=== PATIENT | male | born 1970 | race Two or more races ===

== ENCOUNTER 2017-03-20 14:10 | Emergency (ER) | payer SELFPAY ==
[2017-03-20 15:09] LABS: BASO % 1 % (0-3); EOS % 3 % (0-3); HEMATOCRIT 40.9 % (39.0-53.0); HEMOGLOBIN 14.3 g/dL (13.0-17.5); LYMPH # 2.2 x10^3/uL (1.0-4.8); LYMPH % 36 % (24-48); MEAN CORPUSCULAR HEMOGLOBIN 32 pg (25-35); MEAN CORPUSCULAR HGB CONC 35 g/dL (31-37); MEAN CORPUSCULAR VOLUME 91 fL (79-100); MONO % 7 % (0-9); NEUT % 53 % (31-73); PLATELET COUNT 114 x10^3/uL (140-400); RED CELL DISTRIBUTION WIDTH 13.1 % (11.5-14.5); WHITE BLOOD COUNT 6.1 x10^3/uL (4.0-11.0)
[2017-03-20 15:24] LABS: CALCIUM 9.4 mg/dL (8.5-10.1); CREATININE 0.7 mg/dL (0.7-1.3); GFR 120.4
[2017-03-20 15:30] LABS: ALBUMIN 3.6 g/dL (3.4-5.0); TOTAL BILIRUBIN 0.4 mg/dL (0.2-1.0); TOTAL PROTEIN 7.1 g/dL (6.4-8.2)
[2017-03-20] MEDS ORDERED: CIPR500T94 PO (15:47)
[2017-03-20] MEDS ORDERED: LISI1TAB3 PO (15:47)
[2017-03-20] MEDS ORDERED: METF500T4 PO (15:47)
--- NOTE | 2017-03-20 15:47 | PHYS DOC ---
Past Medical History Past Medical History: Diabetes-Type II Past Surgical History: No Surgical History Alcohol Use: None Drug Use: None Adult General Chief Complaint Chief Complaint: LOWER EXT PAIN HPI HPI Patient is a 46 year old male who presents ambulatory to the ED with his complaining of a sore on his left foot that he's had for a month and has not healed. Patient states he "just wants to get checked out". Patient does not have a doctor, he does not take any medications. He has been told that he had diabetes and high blood pressure but has not been treated for either. Patient yesterday started taking some medication he got from [place]. Patient is Chinese speaking only and the japanese interpreter from was used for evaluation of the patient. Pt states this has things seemed to start with a blister or rubbed area, it never healed, he pulled the skin off the top of it and "pus" drained out. Review of Systems Review of Systems Constitutional: Denies fever or chills [] Cardiovascular: Denies chest pain GI: Denies nausea or vomiting Integument: No other skin injury except as in history of present illness Neurologic: Denies headache All other systems were reviewed and found to be within normal limits, except as documented in this note. Allergies Allergies Allergies Coded Allergies Type Severity Reaction Last Updated Verified No Known Drug Allergies 03/20/17 No Physical Exam Physical Exam Constitutional: Well developed, well nourished, no acute distress, non-toxic appearance. Alert, ambulatory, warm and dry, no acute distress. HENT: Normocephalic, atraumatic, bilateral external ears normal, nose normal. [] Eyes: conjunctiva normal, no discharge. [] Neck: Normal range of motion, no stridor. [] Cardiovascular:Heart rate regular rhythm, no murmur [] Lungs & Thorax: Bilateral breath sounds clear to auscultation [] Abdomen: Bowel sounds normal, soft, nondistended, no masses, no pulsatile masses. [] Skin: Warm, dry, no erythema, no rash. [] Extremities: Left foot has an area on the lateral aspect of the heel. There is an approximately less than 1 cm diameter area that is open. It does not appear to have purulent drainage but has had a small amount of serous drainage. It is surrounded by a small 1-2 cm diameter area of very mild erythema and mild swelling that does not appear to be acute cellulitis. Neurologic: Alert and oriented X 3, normal motor function, no focal deficits noted. [] Current Patient Data Vital Signs Vital Signs Date Time Temp Pulse Resp B/P (MAP) Pulse Ox O2 Delivery O2 Flow Rate FiO2 03/20/17 16:07 78 18 183/110 (134) 98 Room Air 03/20/17 14:20 98.9 98.9 Lab Values Laboratory Tests Test 03/20/17 14:40 03/20/17 14:45 Glucose (Fingerstick) 225 mg/dL (70-99) H White Blood Count 6.1 x10^3/uL (4.0-11.0) Red Blood Count 4.50 x10^6/uL (4.30-5.70) Hemoglobin 14.3 g/dL (13.0-17.5) Hematocrit 40.9 % (39.0-53.0) Mean Corpuscular Volume 91 fL (79-100) Mean Corpuscular Hemoglobin 32 pg (25-35) Mean Corpuscular Hemoglobin Concent 35 g/dL (31-37) Red Cell Distribution Width 13.1 % (11.5-14.5) Platelet Count 114 x10^3/uL (140-400) L Neutrophils (%) (Auto) 53 % (31-73) Lymphocytes (%) (Auto) 36 % (24-48) Monocytes (%) (Auto) 7 % (0-9) Eosinophils (%) (Auto) 3 % (0-3) Basophils (%) (Auto) 1 % (0-3) Neutrophils # (Auto) 3.2 x10^3uL (1.8-7.7) Lymphocytes # (Auto) 2.2 x10^3/uL (1.0-4.8) Monocytes # (Auto) 0.4 x10^3/uL (0.0-1.1) Eosinophils # (Auto) 0.2 x10^3/uL (0.0-0.7) Basophils # (Auto) 0.0 x10^3/uL (0.0-0.2) Sodium Level 137 mmol/L (136-145) Potassium Level 4.0 mmol/L (3.5-5.1) Chloride Level 101 mmol/L (98-107) Carbon Dioxide Level 30 mmol/L (21-32) Anion Gap 6 (6-14) Blood Urea Nitrogen 21 mg/dL (8-26) Creatinine 0.7 mg/dL (0.7-1.3) Estimated GFR (Cockcroft-Gault) 120.4 BUN/Creatinine Ratio 30 (6-20) H Glucose Level 234 mg/dL (70-99) H Calcium Level 9.4 mg/dL (8.5-10.1) Total Bilirubin 0.4 mg/dL (0.2-1.0) Aspartate Amino Transferase (AST) 17 U/L (15-37) Alanine Aminotransferase (ALT) 27 U/L (16-63) Alkaline Phosphatase 76 U/L (46-116) Total Protein 7.1 g/dL (6.4-8.2) Albumin 3.6 g/dL (3.4-5.0) Albumin/Globulin Ratio 1.0 (1.0-1.7) Laboratory Tests 03/20/17 14:45 Laboratory Tests 03/20/17 14:45 EKG EKG [] Radiology/Procedures Radiology/Procedures [] Course & Med Decision Making Course & Med Decision Making Pertinent Labs and Imaging studies reviewed. (See chart for details) 46-year-old male presents with a sore on his left heel that he believes he's had for a month and has not healed. It does not appear to be acutely cellulitic. He has continued to work wearing boots inside of plastic or rubber boots, it's possible that the problem with healing is that he has not been elevating it and taking really good care of it. It does not appear to be acutely infected but we will start him on an antibiotic for possible diabetic foot infection. Labs today are suggestive of diabetes. I emphasized to the patient and his the importance of follow-up. He was given area clinics for follow-up. See instructions for plan. [] Dragon Disclaimer Dragon Disclaimer This electronic medical record was generated, in whole or in part, using a voice recognition dictation system. Departure Departure Impression: Primary Impression: Non-healing open wound of heel Additional Impressions: Diabetes Elevated blood pressure reading Disposition: HOME, SELF-CARE Condition: STABLE Referrals: NO PCP (PCP) Patient Instructions: Diabetes and Foot Care, Managing Your High Blood Pressure , Type 2 Diabetes Mellitus, Adult, [id number] Additional Instructions: Stop taking tetracycline. Start taking Cipro. It is a different antibiotic, better for this kind of infection. As much as possible, stay off of your foot and keep it elevated to help keep swelling down and improve circulation. Keep an absorbent dressing on your foot to absorb drainage. Change socks frequently to keep your foot dry. Follow up with one of the clinics that we referred you to, call Wednesday for an appointment, you will need to be seen and possibly referred to a order processing specialist. In the emergency department, your blood pressure was very high. I am starting you on a blood pressure medication to help bring it down. This will need to be rechecked in clinic. Also, your blood sugar was high. It looks like you probably have diabetes. I started you on medication to help bring your blood sugar down. This will need to be rechecked in clinic. Scripts Lisinopril/Hydrochlorothiazide (LISINOPRIL-HCTZ 10-12.5 MG TAB) 1 Each Tablet 1 TAB PO DAILY for blood pressure, #30 TAB 5 Refills Prov: JESICA SIMON MD 03/20/17 Metformin Hcl (METFORMIN HCL) 500 Mg Tablet 500 MG PO BIDWMEALS for ANTI-DIABETIC for 30 Days, #60 TAB 0 Refills Prov: JESICA SIMON MD 03/20/17 Ciprofloxacin Hcl (CIPRO) 500 Mg Tablet 1 TAB PO BID for foot ulcer, #20 TAB Prov: JESICA SIMON MD 03/20/17 Problem Qualifiers JESICA SIMON MD Mar 20, 2017 15:47
[2017-03-20 16:07] VITALS: BP 183/110
== END 2017-03-20 16:11 | disposition home or self-care (01) ==
LOC: ER 14:10
DX: S91.302A Unspecified open wound, left foot, initial encounter (principal); E11.9 Type 2 diabetes mellitus without complications; X58.XXXA Exposure to other specified factors, initial encounter; Y93.89 Activity, other specified; Y99.8 Other external cause status; Y92.89 Other specified places as the place of occurrence of the external cause
CPT/HCPCS: 36415; 80053; 82962; 85025; 99284